=== PATIENT | female | born 1995 | race Caucasian/White ===

== ENCOUNTER 2022-11-26 16:14 | Emergency (ER) | payer OTHER ==
[~2022-11-26] VITALS: Ht 172.7 cm; Wt 134.9 kg
[2022-11-26 16:30] VITALS: BP 139/82
--- NOTE | 2022-11-26 16:51 | NUR ---
MD URBAN AT BEDSIDE FOR EVALUATION
[2022-11-26] MEDS ORDERED: ONDANSETRON 4 MG ODT PO ONE (17:00)
[2022-11-26] MEDS ORDERED: KETOROLAC 15 MG/ML VIAL IM ONE (17:00)
--- NOTE | 2022-11-26 17:00 | NUR ---
27YO FEMALE PT C/O VAGINAL BLEEDING, L PELVIC CRAMPING AND DIZZINESS [id number]. REPORTS BRIGHT RED BLEEDING , CLOTS AND USING ABOUT 8+ PADS DAILY. +NAUSEA, DYSURIA AND INCREASE IN U FREQUENCY. DENIES VOMITING, FEVER, CHILLS, CHEST PAIN OR SOB. PT AAOX4, NO VISIBLE DISTRESS. AMB W/ STEADY GAIT. HOB POSITIONED PER COMFORT. HX: ANEMIA NKA
[2022-11-26 17:51] LABS: APPEARANCE,URINE CLEAR (CLEAR); BILIRUBIN,URINE NEGATIVE (NEGATIVE); BLOOD, URINE 3+ (NEGATIVE); COLOR,URINE RED (YELLOW); LEUKOCYTE ESTERASE ,URINE NEGATIVE (NEGATIVE); NITRITE, URINE NEGATIVE (NEGATIVE); PH,URINE 5.5 (5.0-9.0); UGLUCOSE NEGATIVE (NEGATIVE)
[2022-11-26 17:57] LABS: BASOPHILS # (AUTO) 0.1 K/uL (0.00-0.22); BASOPHILS % (AUTO) 0.8 % (0.0-2.0); EOSINOPHILS # (AUTO) 0.4 K/uL (0-0.4); EOSINOPHILS % (AUTO) 2.8 % (0.0-4.0); HEMATOCRIT 33.9 % (36-48); HEMOGLOBIN 10.8 g/dL (12.0-16.0); LYMPHOCYTES # (AUTO) 3.8 K/uL (2.5-16.5); LYMPHOCYTES % (AUTO) 28.5 % (20.5-51.1); MEAN CORPUSCULAR HEMOGLOBIN 23 pg (27-31); MEAN CORPUSCULAR HGB CONC 32 g/dL (33-37); MEAN CORPUSCULAR VOLUME 72.7 fL (80-94); MONOCYTES % (AUTO) 7.2 % (1.7-9.3); NEUTROPHILS # (AUTO) 8.1 K/uL (1.8-7.7); NEUTROPHILS % (AUTO) 60.7 % (42.2-75.2); PLATELET COUNT (AUTO) 338 K/uL (140-450); RED BLOOD CELL COUNT(AUTO) 4.66 MIL/uL (4.20-5.40); RED CELL DISTRIBUTION WIDTH 16.6 % (11.6-13.7); WHITE BLOOD COUNT (AUTO) 13.3 K/uL (4.8-10.8)
[2022-11-26 18:15] LABS: RBC,URINE 11-20 (MOD) /HPF (0-5); WBC,URINE 0-5 /HPF (0-5)
[2022-11-26 18:16] LABS: TRICHOMONAS,URINE None Seen /HPF (None Seen); YEAST,URINE None Seen /HPF (None Seen)
[2022-11-26 18:17] LABS: ALBUMIN 3.6 g/dL (3.4-5.0); CARBON DIOXIDE 26.5 mmol/L (21-32); CREATININE 0.8 mg/dL (0.6-1.3); POTASSIUM 3.5 mmol/L (3.5-5.1); TOTAL BILIRUBIN 0.3 mg/dL (0.0-1.0)
--- NOTE | 2022-11-26 19:21 | NUR ---
REPORT GIVEN TO AMANUEL LOPEZ. TRANSFER OF CARE AT THIS TIME
[2022-11-26] MEDS ORDERED: FERR325E14 PO (19:39)
[2022-11-26 20:00] VITALS: BP 114/59
--- NOTE | 2022-11-26 20:02 | NUR ---
Patient discharged with v/s stable. Written and verbal after care instructions given and explained. Patient alert, oriented and verbalized understanding of instructions. Ambulatory with steady gait. All questions addressed prior to discharge. ID band removed. Patient advised to follow up with PMD. Rx of FERROUS SULFATE given. Patient educated on indication of medication including possible reaction and side effects. Opportunity to ask questions provided and answered.
== END 2022-11-26 20:00 | disposition home or self-care (01) ==
LOC: MED 16:14
DX: N93.9 Abnormal uterine and vaginal bleeding, unspecified (principal); D64.9 Anemia, unspecified
CPT/HCPCS: 36415; 76830; 80053; 81001; 81025; 83690; 85025; 86886; 86900; 86901; 96372; 99285; J1885; Q0092; Q0162